=== PATIENT | female | born 1950 ===

== ENCOUNTER 2022-01-30 03:47 | Inpatient (IN) | payer OTHER ==
--- NOTE | 2022-01-30 04:56 | P.HP ---
Certification for Inpatient Patient admitted to: Inpatient With expected LOS: <2 Midnights Patient will require the following post-hospital care: None Practitioner: I am a practitioner with admitting privileges, knowledge of patient current condition, hospital course, and medical plan of care. Services: Services provided to patient in accordance with Admission requirements found in Title 42 Section 412.3 of the Code of Federal Regulations <HakanNoni - Last Filed: 01/30/22 05:21> Patient History Date of Service: 01/30/22 Primary Care Provider: Diego Frey Reason for admission: NSTEMI History of Present Illness: Patient is a 71-year-old female with past medical history of A. fib on Eliquis, CAD, hypertension, pulmonary fibrosis who was admitted here as a transfer from [facility] for NSTEMI. Patient initially presented for heat exhaustion as she was outside for a few days with decreased p.o. intake. Her labs at [facility] were significant for sodium 132, potassium 3.1, BUN 22, troponin high-sensitivity 352, WBC 19. She was febrile, tachycardic, and tachypneic. EKG showed NSR with borderline LAD. Chest x-ray showed pulmonary fibrosis and superimposed alveolar opacities in left lower lobe that may represent of pneumonitis or pneumonia. Upon arrival here, repeat labs are ordered. Patient denies chest pain, just feeling generally weak. She is admitted for further evaluation and treatment with cardiology consulting (sees Ran[facility] outpatient). Home medications list reviewed: Yes - Past Medical/Surgical History Diabetic: No -: CAD -: HTN -: Atrial Fibrillation -: Pulmonary Fibrosis -: Suprapubic Sling -: Hysterectomy -: Amy-En-Y Psychosocial/ Personal History: Patient is retired and lives at home with her . - Social History Smoking Status: Former smoker Alcohol use: No CD- Drugs: No Caffeine use: Yes Place of Residence: Home <Noni Mcclendon - Last Filed: 01/30/22 05:21> Date of Service: 01/30/22 <Otilia Barton - Last Filed: 01/30/22 16:21> Allergies No Known Allergies Allergy (Verified 01/30/22 05:05) Review of Systems General: Fever, Chills, Weakness Respiratory: Cough <Noni Mcclendon - Last Filed: 01/30/22 05:21> Physical Examination - Physical Exam General: Alert, In no apparent distress, Oriented x3 HEENT: Atraumatic, PERRLA, EOMI, Sclerae nonicteric Neck: Supple, 2+ carotid pulse no bruit, No LAD, Without JVD or thyroid abnormality Respiratory: Diminished, Expiratory wheezes Cardiovascular: No edema, Regular rate/rhythm, Normal S1 S2 Gastrointestinal: Normal bowel sounds, No tenderness Musculoskeletal: No tenderness Integumentary: No rashes Neurological: Normal speech, Normal strength at 5/5 x4 extr, Normal tone, Normal affect <HakanNoni - Last Filed: 01/30/22 05:21> - Studies Laboratory Data (last 24 hrs) 01/30/22 14:22: Potassium 3.3 L 01/30/22 06:09: WBC 16.3 H, Hgb 10.9 L, Hct 33.5 L, Plt Count 186 01/30/22 06:09: Sodium 133 L, Potassium 3.0 L, BUN 18, Creatinine 0.97, Glucose 111 H, Magnesium 1.7 L, Total Bilirubin 0.7, AST 47 H, ALT 89 H, Alkaline Phosphatase 100, Triglycerides 127, Cholesterol 144, HDL Cholesterol 48, Cholesterol/HDL Ratio 3.00 <Otilia Barton - Last Filed: 01/30/22 16:21> Assessment and Plan - Problems (Diagnosis) (1) NSTEMI (non-ST elevated myocardial infarction) Current Visit: Yes Status: Acute (2) Leukocytosis Current Visit: Yes Status: Acute Qualifiers: Leukocytosis type: unspecified Qualified Code(s): D72.829 - Elevated white blood cell count, unspecified (3) Hypokalemia Current Visit: Yes Status: Acute (4) Dehydration Current Visit: Yes Status: Acute (5) Afib Current Visit: Yes Status: Chronic Qualifiers: Atrial fibrillation type: unspecified Qualified Code(s): I48.91 - Unspecified atrial fibrillation (6) Pulmonary fibrosis Current Visit: Yes Status: Chronic (7) CAD (coronary artery disease) Current Visit: Yes Status: Chronic Qualifiers: Coronary Disease-Associated Artery/Lesion type: [place] artery [place] vs. transplanted heart: [place] heart Associated angina: without angina Qualified Code(s): I25.10 - Atherosclerotic heart disease of [place] coronary artery without angina pectoris (8) Hypertension Current Visit: Yes Status: Chronic Qualifiers: Hypertension type: primary hypertension Qualified Code(s): I10 - Essential (primary) hypertension - Plan -Cardiology consulted. Repeat cardiac enzymes pending. NPO. -Aspirin ordered. Patient reports taking her eliquis routinely. -Leukocytosis could be secondary to pnuemonia. Antibiotics ordered. Blood cultures drawn. Lactate and procal pending. -Tylenol PRN fever -Cont IV fluids for dehydration -Replete electrolytes per protocol -Obtain and continue home medications -DVT ppx -Full code Discharge Plan: Home Plan to discharge in: 48 Hours - Advance Directives Does patient have a Living Will: No Does patient have a Durable POA for Healthcare: No - Code Status/Comfort Care Code Status Assessed: Yes (Full) Critical Care: No Time Spent Managing Pts Care (In Minutes): 50 <Noni Mcclendon - Last Filed: 01/30/22 05:21> Date of Service: 01/30/22 Subjective: HPI as mentioned above Physical Examination: Vitals: Afebrile vital signs are stable Physical exam: Cardiovascular: Within normal limits. Lungs: Within normal limits Abdomen: Within normal limits Neuro: Awake, alert, oriented to person place and time Assessment: 1. Pulmonary fibrosis with secondary pneumonia 2. Non-STEMI Plan: 1. Continue with IV antibiotics 2. Awaiting sputum and blood culture 3. Repeat chest x-ray 4. CT scan of the chest if pneumonia is not improving- 5. Appreciate pulmonary consultation 6. Continue with nebs as needed 7. O2 per protocol 8. Continue with gentle hydration 9. Repeat labs including CBC and renal function in a.m. 10. GI and DVT prophylaxis <Otilia Barton - Last Filed: 01/30/22 16:21>
[2022-01-30] MEDS ORDERED: MORPHINE 2 MG/ML SYR IV PRN (05:05)
[2022-01-30] MEDS ORDERED: ONDANSETRON 4 MG/2 ML VIAL IV PRN (05:05)
[2022-01-30] MEDS ORDERED: HYDRALAZINE HCL 20 MG/ML VIAL IV PRN (05:05)
[2022-01-30] MEDS: ACETAMINOPHEN 500 MG TAB PO PRN ×3 (05:22→15:55)
[2022-01-30] MEDS ORDERED: ASPIRIN EC 81 MG TAB PO ONE (05:27)
[2022-01-30] MEDS: NA CHLORIDE 0.9% 1,000 ML IV SCH ×3 (05:41→23:20)
[2022-01-30 06:00] VITALS: BMI 22.8
[2022-01-30 06:39] LABS: Absolute Lymphocytes (CBC) 0.6 K/uL (0.7-4.9); Hematocrit 33.5 % (36.0-45.0); Lymphocytes % 3.9 % (15.3-44.8); MCV 82.4 fL (80-100); RBC Red Blood Cell Count 4.07 M/uL (3.86-4.86)
[2022-01-30 06:49] LABS: ALT/SGPT 89 U/L (12-78); AST/SGOT 47 U/L (15-37); Albumin 2.3 g/dL (3.4-5.0); Alkaline Phosphatase 100 U/L (45-117); BUN Blood Urea Nitrogen 18 mg/dL (7-18); Bicarbonate 29 mmol/L (21-32); Bilirubin Total 0.7 mg/dL (0.2-1.0); Creatine Phosphokinase 104 U/L (26-192); Glomerular Filtration Rate 62 ml/min (=/>90); Glucose Level 111 mg/dL (74-106); HDL Cholesterol 48 mg/dL (40-60); LDL Cholesterol, Calculated 71 mg/dL (<130); Magnesium 1.7 mg/dL (1.8-2.4); NT PRO-BNP 3170 pg/mL (<125); Sodium Level 133 mmol/L (136-145); Thyroid Stimulating Hormone 0.948 uIU/mL (0.360-3.740)
[2022-01-30 06:50] LABS: CKMB Creatine Kinase MB < 1.0 ng/mL (1.0-3.6)
[2022-01-30 06:51] LABS: Troponin High Sensitivity 290.3 pg/mL (<58.9)
[2022-01-30] MEDS ORDERED: POTASSIUM CL SA 10 MEQ TAB PO ONE ×2 (07:36→15:13)
[2022-01-30] MEDS ORDERED: MAGNESIUM SULFATE 1 gm IVPB 1 GM/100 ML BAG IV ONE (07:37)
[2022-01-30 08:38] LABS: Anisocytosis 2+; Blood Morphology Comment NOTED (NOT SEEN); Hypochromasia 1+; Platelet Estimate ADEQ; Poikilocytosis SLIGHT; White Blood Cell Scan OK (OK)
[2022-01-30] MEDS: APIXABAN 5 MG TABLET PO SCH ×3 (08:41→20:31)
[2022-01-30] MEDS ORDERED: ASPIRIN EC 81 MG TAB PO SCH (09:00)
[2022-01-30] MEDS ORDERED: CEFTRIAXONE 1,000 MG in NA CHLORIDE 0.9% 50 ML IVPB SCH (09:00)
[2022-01-30] MEDS ORDERED: APIXABAN 5 MG TABLET PO SCH (09:00)
--- NOTE | 2022-01-30 14:07 | CON ---
Date of Consultation: 01/30/2022 Reason For Consultation: Elevated troponin. History Of Present Illness: Ms. Walker is a 71-year-old white woman. She has a history of severe pu lmonary fibrosis, hypertension, and paroxysmal atrial fibrillation. She sees Dr. Pollack in the offic e. They were camping for about a week and she came to the emergency room and with heat ex haustion fever, chills, diarrhea; was found to have an elevated troponin, elevated liver function yariel ts, hypokalemia, elevated white count, elevated procalcitonin, elevated BNP of 3170. We decided to t ransfer her to [place] for further evaluation and care. The patient never had any chest pain. Past Medical History: As stated above. Allergies: NONE. Review of Systems: Negative. Social History: Negative. Family History: Negative. Medications: At home include inhalers, Eliquis, Lasix, and Protonix. She also takes Ofev for pulmon elen fibrosis. Physical Examination: General: Mrs. Walker was not having any chest pain, but she was coughing pretty much continuously. Vital Signs: Otherwise stable. She was in sinus rhythm. HEENT: Negative. Neck: Supple with no bruit, lymphadenopathy, JVD, or thyromegaly. Chest: Despite her coughing showed no wheezing. No rales. It was clear to auscultation and percuss ion. Cardiac exam: Revealed a regular rhythm and rate. No murmurs, gallops, or rubs. Abdomen: Benign. Extremities: Revealed no clubbing, cyanosis, or edema. Diagnostic Data: As stated earlier, EKG is nonspecific. Chest x-ray is negative. Impression And Plan: 1.Elevated troponin secondary to demand ischemia from heat exhaustion, diarrhea, fever, and chills. 2.Hypokalemia, need to be supplemented. 3.Elevated fungus level secondary to heat exhaustion. 4.Elevated white count and procalcitonin consistent with infection. She is on antibiotics. Her other problems include paroxysmal atrial fibrillation, on Eliquis, which we will need to continue . Pulmonary fibrosis, she takes Ofed inhaler, which we will need to continue. Her blood pressure is well controlled on her present regimen. She does state that Lasix at home will need to continue. M rs. Aaron does not have an acute coronary syndrome. No plan for heart catheterization. She had a n egative stress test about a year ago. Echocardiogram is pending for tomorrow and we will see her in the office in the next week or two. DAMIR Voice ID: [id number] Report ID: [id number]
[2022-01-30] MEDS ORDERED: METHYLPREDNISOLONE 125 MG INJ IV ONE (15:52)
[2022-01-30] MEDS ORDERED: HOME MED 1 EA UNK (Albuterol Sulfate [Proair Respiclick] 90 MCG Aer.Pow.Ba) IH PRN (16:02)
[2022-01-30] MEDS ORDERED: ALBUTEROL 2.5 MG/3 ML NEB SOL NEB PRN (16:05)
[2022-01-30] MEDS: Levofloxacin 750mg IV 750 MG/150 ML BAG IV SCH (16:43)
[2022-01-30 16:47] LABS: Urine Appearance Clear (Clear); Urine Bilirubin Negative (Negative); Urine Blood 2+ (Negative); Urine Color Yellow (Yellow); Urine Glucose Negative (Negative); Urine Protein 1+ (Negative); Urine pH 5.5 (5.0-7.0)
[2022-01-30 16:55] LABS: Urine Bacteria <20 /HPF (<20)
--- NOTE | 2022-01-30 17:11 | RAD REPORT ---
EXAM DESCRIPTION: CT - Thorax Wo Con - 01/30/2022 5:00 pm CLINICAL HISTORY: Pneumonia COMPARISON: No comparisons FINDINGS: Chest Wall: No suspicious thyroid nodules or pathologic lymphadenopathy. Lungs: Bilateral honeycombing in apical basilar gradient with traction bronchiectasis. There are scat tered areas of interstitial thickening which may or may not be chronic. No evidence of a consolidativ e pneumonia. No discrete lung mass. Pleura: Trace left pleural effusion. Mediastinum/han: No pathologic lymphadenopathy. Patulous esophagus with fluid. Pulmonary arteries/Aorta: Limited evaluation without contrast. No aortic aneurysm. Ectasia of the asc ending thoracic aorta. Heart: No significant pericardial effusion. Normal heart size. Mild coronary artery calcifications. Upper abdomen: Partially imaged surgical changes at the gastroesophageal junction. Bones: No acute abnormality. All CT scans are performed using dose optimization technique as appropriate and may include automated exposure control or mA/KV adjustment according to patient size. IMPRESSION: Pulmonary fibrosis in a usual interstitial pneumonia (IUP) pattern. Without priors, an e xacerbation difficult to exclude. No convincing findings to suggest a pneumonia, however.
[2022-01-30] MEDS: METHYLPREDNISOLONE 125 MG INJ IV SCH ×2 (17:14→23:59)
[2022-01-30] MEDS: PIPER TAZO 3.375 GM in NA CHLORIDE 0.9% 100 ML IV SCH ×2 (17:53→23:59)
[2022-01-30] MEDS: IPRATROPIUM BROM 0.5MG/2.5ML NEB SCH (19:52)
[2022-01-30] MEDS: ARFORMOTEROL TARTRATE 15 MCG/2 ML VIAL.NEB NEB SCH (19:52)
[2022-01-30] MEDS: NINTEDANIB ESYLATE 150 MG PO SCH (20:10)
[2022-01-30] MEDS: DULERA 100/5 (MOMETASONE/FORMOTEROL) INHALER IH SCH (20:30)
[2022-01-30] MEDS: ATORVASTATIN 40 MG TAB PO SCH (20:31)
[2022-01-31] MEDS: ACETAMINOPHEN 500 MG TAB PO PRN ×4 (00:05→22:47)
[2022-01-31 04:32] LABS: Absolute Lymphocytes (CBC) 0.4 K/uL (0.7-4.9); Hematocrit 31.8 % (36.0-45.0); Lymphocytes % 4.5 % (15.3-44.8); MCV 82.7 fL (80-100); MPV 8.2 fL (7.6-11.3); RBC Red Blood Cell Count 3.84 M/uL (3.86-4.86)
[2022-01-31 04:51] LABS: Albumin 1.9 g/dL (3.4-5.0); Bilirubin Total 0.4 mg/dL (0.2-1.0); Magnesium 2.2 mg/dL (1.8-2.4); Potassium 3.5 mmol/L (3.5-5.1); Protein, Total 5.8 g/dL (6.4-8.2)
[2022-01-31] MEDS ORDERED: POTASSIUM CL SA 10 MEQ TAB PO ONE (04:56)
[2022-01-31] MEDS: METHYLPREDNISOLONE 125 MG INJ IV SCH (05:07)
[2022-01-31] MEDS: IPRATROPIUM BROM 0.5MG/2.5ML NEB SCH ×2 (08:00→20:31)
[2022-01-31] MEDS: ARFORMOTEROL TARTRATE 15 MCG/2 ML VIAL.NEB NEB SCH ×2 (08:00→20:31)
--- NOTE | 2022-01-31 08:21 | P.CNS ---
Date of Consult: 01/31/22 Reason for Consult: Pulmonary fibrosis Primary Care Provider: Diego Frey Chief Complaint: Bacteremia possible non-STEMI and pulmonary fibrosis History of Present Illness: Patient is 71 years of age admitted with worsening dyspnea some fever and chills she has a history of pulmonary fibrosis possible non-STEMI she is feeling better now CT scan shows pulmonary fibrosis denies any cough or chest pain fever or chills Allergies No Known Allergies Allergy (Verified 01/30/22 05:05) Home Medications: Albuterol Sulfate [Proair Respiclick] 1 puff IH Q4HP PRN 01/30/22 Apixaban [Eliquis] 5 mg PO BID 01/30/22 Budesonide/Formoterol Fumarate [Budesonide-Formoterol 160-4.5] 10.2 gm IH BID 01/30/22 Celecoxib 200 mg PO BID 01/30/22 Furosemide 20 mg PO DAILY 01/30/22 Nintedanib Esylate [Ofev] 150 mg PO BID 01/30/22 Pantoprazole [Protonix Tab] 40 mg PO DAILY 01/30/22 - Past Medical/Surgical History Diabetic: No -: CAD -: HTN -: Atrial Fibrillation -: Pulmonary Fibrosis -: Suprapubic Sling -: Hysterectomy -: Amy-En-Y Psychosocial/ Personal History: Patient is retired and lives at home with her . - Social History Alcohol use: No CD- Drugs: No Caffeine use: Yes Place of Residence: Home Review of Systems 10-point ROS is otherwise unremarkable Physical Examination Temp Pulse Resp BP Pulse Ox 97 F 60 16 111/52 L 95 01/31/22 07:56 01/31/22 07:56 01/31/22 07:56 01/31/22 07:56 01/31/22 07:56 General: Alert, In no apparent distress Respiratory: Crackles/rales Cardiovascular: No edema, Regular rate/rhythm, Normal S1 S2 Laboratory Data (last 24 hrs) 01/31/22 04:01: Sodium 137, Potassium 3.5, BUN 17, Creatinine 0.90, Glucose 145 H, Magnesium 2.2 D, Total Bilirubin 0.4, AST 26, ALT 65, Alkaline Phosphatase 82 01/31/22 04:01: WBC 9.1 D, Hgb 10.3 L, Hct 31.8 L, Plt Count 171 01/30/22 21:32: Potassium 3.7 01/30/22 14:22: Potassium 3.3 L 01/30/22 06:09: WBC 16.3 H, Hgb 10.9 L, Hct 33.5 L, Plt Count 186 - Problems (1) Pulmonary fibrosis Current Visit: Yes Status: Chronic Plan: Patient is 71 years of age with a history of pulmonary fibrosis admitted with possible pneumonia CT scan shows pulmonary fibrosis t patient's condition is stable compliant with Ofev patient is anticoagulated with Eliquis at home due to A. fib (2) Positive blood culture Current Visit: Yes Status: Acute Plan: Patient has positive blood cultures gram-negative rods possible Pseudomonas patient is on dual therapy with levofloxacin and Zosyn ID pending count is now normal patient is feeling better vital signs oxygenation stable DC steroids el evated troponin most likely demand ischemia
[2022-01-31] MEDS: PIPER TAZO 3.375 GM in NA CHLORIDE 0.9% 100 ML IV SCH (08:27)
[2022-01-31] MEDS: APIXABAN 5 MG TABLET PO SCH ×2 (08:27→20:52)
[2022-01-31] MEDS: ASPIRIN EC 81 MG TAB PO SCH (08:27)
[2022-01-31] MEDS: NINTEDANIB ESYLATE 150 MG PO SCH ×2 (08:29→20:53)
[2022-01-31] MEDS: DULERA 100/5 (MOMETASONE/FORMOTEROL) INHALER IH SCH ×2 (08:29→20:53)
[2022-01-31] MEDS: PANTOPRAZOLE 40MG TABLET PO SCH (08:30)
[2022-01-31] MEDS: NA CHLORIDE 0.9% 1,000 ML IV SCH ×2 (08:31→22:41)
[2022-01-31] MEDS ORDERED: FUROSEMIDE 20 MG TABLET PO SCH (09:00)
--- NOTE | 2022-01-31 13:35 | P.PN ---
Subjective Date of Service: 01/31/22 Primary Care Provider: Diego Frey Chief Complaint: Bacteremia possible non-STEMI and pulmonary fibrosis Subjective: No new changes, Tolerating diet, Improving Physical Examination - Vital Signs Temperature: 97.2 F Blood Pressure: 110/56 Pulse: 53 Respirations: 18 Pulse Ox (%): 96 - Studies Laboratory Data (last 24 hrs) 01/31/22 04:01: Sodium 137, Potassium 3.5, BUN 17, Creatinine 0.90, Glucose 145 H, Magnesium 2.2 D, Total Bilirubin 0.4, AST 26, ALT 65, Alkaline Phosphatase 82 01/31/22 04:01: WBC 9.1 D, Hgb 10.3 L, Hct 31.8 L, Plt Count 171 01/30/22 21:32: Potassium 3.7 01/30/22 14:22: Potassium 3.3 L Microbiology Data (last 24 hrs): 01/30/22 06:13 Blood - Blood Blood Culture Gram Stain - Final 01/30/22 06:13 Blood - Blood Gram Stain - Final 01/30/22 06:09 Blood - Blood Blood Culture Gram Stain - Final 01/30/22 06:09 Blood - Blood Gram Stain - Final Assessment And Plan Physician Review: Patient Assessed, Agree with Above Assessment and Plan Physician Review Additional Text: - Physical Exam General: Alert, In no apparent distress, Oriented x3 HEENT: Atraumatic, PERRLA, EOMI, Sclerae nonicteric Neck: Supple, 2+ carotid pulse no bruit, No LAD, Without JVD or thyroid abnormality Respiratory: Diminished, Expiratory wheezes Cardiovascular: No edema, Regular rate/rhythm, Normal S1 S2 Gastrointestinal: Normal bowel sounds, No tenderness Musculoskeletal: No tenderness Integumentary: No rashes Neurological: Normal speech, Normal strength at 5/5 x4 extr, Normal tone, Normal affect Laboratory Data (last 24 hrs) Blood culture x2 - Problems (Diagnosis) (1) NSTEMI (non-ST elevated myocardial infarction) Current Visit: Yes Status: Acute (2) Leukocytosis Current Visit: Yes Status: Acute Qualifiers: Leukocytosis type: unspecified Qualified Code(s): D72.829 - Elevated white blood cell count, unspecified (3) Hypokalemia Current Visit: Yes Status: Acute (4) Dehydration Current Visit: Yes Status: Acute (5) Afib Current Visit: Yes Status: Chronic Qualifiers: Atrial fibrillation type: unspecified Qualified Code(s): I48.91 - Unspecified atrial fibrillation (6) Pulmonary fibrosis Current Visit: Yes Status: Chronic (7) CAD (coronary artery disease) Current Visit: Yes Status: Chronic Qualifiers: Coronary Disease-Associated Artery/Lesion type: [place] artery [place] vs. transplanted heart: [place] heart Associated angina: without angina Qualified Code(s): I25.10 - Atherosclerotic heart disease of [place] coronary artery without angina pectoris (8) Hypertension Current Visit: Yes Status: Chronic Qualifiers: Hypertension type: primary hypertension Qualified Code(s): I10 - Essential (primary) hypertension Plan -Likely due to demand mediated ischemia, troponin trending down Continue empirical antibiotics -Blood culture with gram-negative rods, likely due to UTI with bacteremia -Continue aspirin and eliquis -Leukocytosis could be secondary to pnuemonia. -Pulmonary fibrosis stable -Will need nebulizer prescription at discharge -Obtain and continue home medications -DVT ppx -Full code Time Spent Managing PTS Care (In Minutes): 35
[2022-01-31] MEDS: Levofloxacin 750mg IV 750 MG/150 ML BAG IV SCH (15:42)
[2022-01-31] MEDS ORDERED: CALCIUM CARBONATE CHEW 500MG TAB PO ONE (20:05)
--- NOTE | 2022-01-31 20:13 | PN ---
The patient was admitted with pulmonary fibrosis exacerbation, coronary artery disease, atrial fibril lation, hypertension, heat exhaustion, mildly elevated troponin. Echocardiogram today did not show a ny significant wall motion abnormalities. Mrs. Walker does take Ofev for her pulmonary fibrosis. Sh hira has been seen by Dr. Pretty from a cardiac standpoint. The patient is already on Eliquis as far as her atrial fibrillation is concerned. I think her troponin was secondary to demand ischemia from heat exhaustion, diarrhea, fever and chills and maybe hypokalemia. The patient remains on antibiotic s. Had a negative stress test about a year ago. No further cardiac recommendations at this point. KAYLEY/TR Voice ID: [id number] Report ID: [id number]
[2022-01-31] MEDS: ATORVASTATIN 40 MG TAB PO SCH (20:52)
[2022-02-01 06:33] LABS: Potassium 3.7 mmol/L (3.5-5.1)
[2022-02-01] MEDS ORDERED: ARFORMOTEROL TARTRATE 15 MCG/2 ML VIAL.NEB ONE (08:07)
[2022-02-01] MEDS: PANTOPRAZOLE 40MG TABLET PO SCH (08:12)
[2022-02-01] MEDS: ASPIRIN EC 81 MG TAB PO SCH (08:12)
[2022-02-01] MEDS: APIXABAN 5 MG TABLET PO SCH ×2 (08:12→20:32)
[2022-02-01] MEDS: DULERA 100/5 (MOMETASONE/FORMOTEROL) INHALER IH SCH ×2 (08:12→20:32)
[2022-02-01] MEDS: NINTEDANIB ESYLATE 150 MG PO SCH ×2 (08:13→20:33)
[2022-02-01] MEDS: NA CHLORIDE 0.9% 1,000 ML IV SCH (08:13)
[2022-02-01] MEDS: IPRATROPIUM BROM 0.5MG/2.5ML NEB SCH ×2 (08:27→20:00)
[2022-02-01] MEDS: ARFORMOTEROL TARTRATE 15 MCG/2 ML VIAL.NEB NEB SCH ×2 (08:27→20:00)
--- NOTE | 2022-02-01 08:36 | ECHO ---
HEIGHT: 5 ft 6 in WEIGHT: 142 lb 0 oz DATE OF STUDY: 01/31/[address]: Say Chapa MD 2-DIMENSIONAL: YES M.MODE: YES DOPPLER: YES COLOR FLOW: YES TDS: PORTABLE: DEFINITY: BUBBLE STUDY: DIAGNOSIS: CHEST PAIN CARDIAC HISTORY: CATHERIZATION: SURGERY: PROSTHETIC VALVE: PACEMAKER: MEASUREMENTS (cm) DIASTOLIC (NORMALS) SYSTOLIC (NORMALS) IVSd 1.0 (0.6-1.2) LA Diam 3.6 (1.9-4.0) LVEF 62% LVIDd 4.6 (3.5-5.7) LVIDs 3.1 (2.0-3.5) %FS 33% LVPWd 1.0 (0.6-1.2) Ao Diam 3.3 (2.0-3.7) 2 DIMENSIONAL ASSESSMENT: RIGHT ATRIUM: NORMAL LEFT ATRIUM: NORMAL RIGHT VENTRICLE: NORMAL LEFT VENTRICLE: NORMAL TRICUSPID VALVE: NORMAL MITRAL VALVE: NORMAL PULMONIC VALVE: NORMAL AORTIC VALVE: THICKENED WITH MILD AOTIC INSUFFICIECNY PERICARDIAL EFFUSION: NONE AORTIC ROOT: NORMAL LEFT VENTRICULAR WALL MOTION: NORMAL DOPPLER/COLOR FLOW: MILD TRICUSPID REGURGITATION. MILD AORTIC INSUFFICIENCY. MILD MITRAL REGURGITATION. COMMENTS: NORMAL LEFT VENTRICULAR EJECTION FRACTION 60-65%. NORMAL WALL MOTION. MILD TRICUSPID REGURGITATION. MILD MITRAL REGURGITATION. MILD AORTIC INSUFFICIENCY. TECHNOLOGIST: ALEXANDRA AVILA
[2022-02-01] MEDS ORDERED: POTASSIUM CL SA 10 MEQ TAB PO ONE (09:00)
--- NOTE | 2022-02-01 13:04 | P.PN ---
Subjective Date of Service: 02/01/22 Primary Care Provider: Diego Frey Chief Complaint: Bacteremia possible non-STEMI and pulmonary fibrosis Subjective: No new changes, Tolerating diet, Ambulating Physical Examination - Vital Signs Temperature: 98.5 F Blood Pressure: 139/62 Pulse: 56 Respirations: 13 Pulse Ox (%): 97 - Studies Laboratory Data (last 24 hrs) 02/01/22 06:03: Sodium 139, Potassium 3.7, BUN 20 H, Creatinine 1.04, Glucose 117 H Microbiology Data (last 24 hrs): 01/30/22 06:13 Blood - Blood Aerobic Blood Culture - Final Escherichia Coli 01/30/22 06:13 Blood - Blood Blood Culture Gram Stain - Final 01/30/22 06:13 Blood - Blood Anaerobic Blood Culture - Final Escherichia Coli 01/30/22 06:13 Blood - Blood Gram Stain - Final 01/30/22 06:09 Blood - Blood Aerobic Blood Culture - Final Escherichia Coli 01/30/22 06:09 Blood - Blood Blood Culture Gram Stain - Final 01/30/22 06:09 Blood - Blood Anaerobic Blood Culture - Final Escherichia Coli 01/30/22 06:09 Blood - Blood Gram Stain - Final Assessment And Plan Physician Review: Patient Assessed, Agree with Above Assessment and Plan Physician Review Additional Text: : Echocardiogram MILD TRICUSPID REGURGITATION. MILD AORTIC INSUFFICIENCY. MILD MITRAL REGURGITATION. COMMENTS: NORMAL LEFT VENTRICULAR EJECTION FRACTION 60-65%. NORMAL WALL MO TION. MILD TRICUSPID REGURGITATION. MILD MITRAL REGURGITATION. MILD AORTIC INSUFFICIENCY. - Physical Exam General: Alert, In no apparent distress, Oriented x3 HEENT: Atraumatic, PERRLA, EOMI, Sclerae nonicteric Neck: Supple, 2+ carotid pulse no bruit, No LAD, Without JVD or thyroid abnormality Respiratory: resolved expiratory wheeze, good air entry now Cardiovascular: No edema, Regular rate/rhythm, Normal S1 S2 Gastrointestinal: Normal bowel sounds, No tenderness Musculoskeletal: No tenderness Integumentary: No rashes Neurological: Normal speech, Normal strength at 5/5 x4 extr, Normal tone, Normal affect Laboratory Data (last 24 hrs) Blood culture x2 - Problems (Diagnosis) (1) NSTEMI (non-ST elevated myocardial infarction) Current Visit: Yes Status: Acute (2) Leukocytosis Current Visit: Yes Status: Acute Qualifiers: Leukocytosis type: unspecified Qualified Code(s): D72.829 - Elevated white blood cell count, unspecified (3) Hypokalemia Current Visit: Yes Status: Acute (4) Dehydration Current Visit: Yes Status: Acute (5) Afib Current Visit: Yes Status: Chronic Qualifiers: Atrial fibrillation type: unspecified Qualified Code(s): I48.91 - Unspecified atrial fibrillation (6) Pulmonary fibrosis Current Visit: Yes Status: Chronic (7) CAD (coronary artery disease) Current Visit: Yes Status: Chronic Qualifiers: Coronary Disease-Associated Artery/Lesion type: [place] artery [place] vs. transplanted heart: [place] heart Associated angina: without angina Qualified Code(s): I25.10 - Atherosclerotic heart disease of [place] coronary artery w ithout angina pectoris (8) Hypertension Current Visit: Yes Status: Chronic Qualifiers: Hypertension type: primary hypertension Qualified Code(s): I10 - Essential (primary) hypertension Plan -Likely due to demand mediated ischemia, troponin trending down Continue empirical antibiotics -Blood culture with E coli bacteremia but neg urine cx -Antibiotics switched to Levaquin, Echocardiogram shows normal EF with normal valves Follow repeat blood culture today -Continue aspirin and eliquis -Leukocytosis could be secondary to bacteremiaimproving -Pulmonary fibrosis stable -Will need nebulizer prescription at discharge -DVT ppx -Full code Dispositionplan for DC home if repeat blood culture negative for 48 hours
[2022-02-01] MEDS: ACETAMINOPHEN 500 MG TAB PO PRN (16:53)
[2022-02-01] MEDS: Levofloxacin 750mg IV 750 MG/150 ML BAG IV SCH (16:54)
[2022-02-01] MEDS ORDERED: CALCIUM CARBONATE CHEW 500MG TAB PO ONE (19:43)
[2022-02-01] MEDS: ATORVASTATIN 40 MG TAB PO SCH (20:32)
[2022-02-02 06:03] LABS: Absolute Lymphocytes (CBC) 1.1 K/uL (0.7-4.9); Hematocrit 30.7 % (36.0-45.0); Lymphocytes % 9.6 % (15.3-44.8); MCV 82.9 fL (80-100); RBC Red Blood Cell Count 3.71 M/uL (3.86-4.86)
[2022-02-02 06:17] LABS: Magnesium 1.5 mg/dL (1.8-2.4); Potassium 3.6 mmol/L (3.5-5.1)
[2022-02-02 06:54] LABS: Blood Morphology Comment NOTED (NOT SEEN); White Blood Cell Scan OK (OK)
[2022-02-02 06:55] LABS: Anisocytosis 2+; Platelet Estimate ADEQ
[2022-02-02] MEDS: MAGNESIUM SULFATE 1 gm IVPB 1 GM/100 ML BAG IV SCH ×2 (08:00→08:20)
[2022-02-02] MEDS: ARFORMOTEROL TARTRATE 15 MCG/2 ML VIAL.NEB NEB SCH (08:10)
[2022-02-02] MEDS: IPRATROPIUM BROM 0.5MG/2.5ML NEB SCH (08:10)
[2022-02-02] MEDS: ACETAMINOPHEN 500 MG TAB PO PRN ×2 (08:19→15:53)
[2022-02-02] MEDS: PANTOPRAZOLE 40MG TABLET PO SCH (08:19)
[2022-02-02] MEDS: ASPIRIN EC 81 MG TAB PO SCH (08:19)
[2022-02-02] MEDS: APIXABAN 5 MG TABLET PO SCH (08:20)
[2022-02-02] MEDS: DULERA 100/5 (MOMETASONE/FORMOTEROL) INHALER IH SCH (08:20)
[2022-02-02] MEDS: NINTEDANIB ESYLATE 150 MG PO SCH (08:21)
[2022-02-02] MEDS ORDERED: Magnesium Sulfate 2gm IVPB 2 G/50 ML BAG IV ONE (08:45)
[2022-02-02] MEDS ORDERED: FUROSEMIDE 20 MG TABLET PO SCH (09:00)
[2022-02-02] MEDS ORDERED: POTASSIUM CL SA 10 MEQ TAB PO ONE (09:00)
[2022-02-02] MEDS ORDERED: MAGNESIUM 50% 3 GM in NA CHLORIDE 0.9% 100 ML IV ONE (09:00)
[2022-02-02 12:18] VITALS: TEMP 97.6
[2022-02-02 12:58] LABS: Urine Appearance Clear (Clear); Urine Bilirubin Negative (Negative); Urine Blood Trace-intact (Negative); Urine Color Yellow (Yellow); Urine Glucose Negative (Negative); Urine Protein Negative (Negative); Urine Specific Gravity <=1.005 (1.005-1.030); Urine Urobilinogen 0.2 mg/dL (0.2-1.0)
--- NOTE | 2022-02-02 13:09 | P.DS ---
Admission Date: 01/30/22 Discharge Date: 02/02/22 Primary Care Provider: Diego Frey Disposition: ROUTINE DISCHARGE Discharge Condition: FAIR Reason for Admission: Bacteremia possible non-STEMI and pulmonary fibrosis Brief History of Present Illness: History of Present Illness: Patient is a 71-year-old female with past medical history of A. fib on Eliquis, CAD, hypertension, pulmonary fibrosis who was admitted here as a transfer from [place] for NSTEMI. Patient initially presented for heat exhaustion as she was outside for a few days with decreased p.o. intake. Her labs at [facility] were significant for sodium 132, potassium 3.1, BUN 22, troponin high-sensitivity 352, WBC 19. She was febrile, tachycardic, and tachypneic. EKG showed NSR with borderline LAD. Chest x-ray showed pulmonary fibrosis and superimposed alveolar opacities in left lower lobe that may represent of pneumonitis or pneumonia. Upon arrival here, repeat labs are ordered. Patient denies chest pain, just feeling generally weak. She is admitted for further evaluation and treatment with cardiology consulting (tracys [facility] outpatient). Home medications list reviewed: Yes - Past Medical/Surgical History Diabetic: No -: CAD -: HTN -: Atrial Fibrillation -: Pulmonary Fibrosis -: Suprapubic Sling -: Hysterectomy -: Amy-En-Y Hospital Course: Hospital course Patient was admitted for fever with chills as well as elevated troponin. She also had some mild urinary tract symptoms. Urinalysis was suggestive of UTI she was started on empirical antibiotics on presentation. Blood culture obtained at the time grew E. coli. Urine culture obtained 8 hours later did not show yield any growth. She had an echocardiogram done with findings of normal EF and no significant valvular abnormality. Her procalcitonin as well as white cell count significantly improved. Her troponin also quickly trended down. It was felt her troponin elevation was demand mediated ischemia from bacteremia. She was evaluated by pulmonary for pulmonary fibrosis. Bronchodilators was initiated. Patient tolerated treatment well and within 48 hours of was anxious to go home. Repeat blood culture was obtained and since significant improved clinically and no growth in blood culture over 24 hours. Patient can be discharged home to finish a 14-day course of antibiotics with Levaquin. She was continued on her Eliquis. Aspirin was started for her for secondary prophylaxis. Her home dose of Celebrex was discontinued given risk for GI bleed - Physical Exam General: Alert, In no apparent distress, Oriented x3 HEENT: Atraumatic, PERRLA, EOMI, Sclerae nonicteric Neck: Supple, 2+ carotid pulse no bruit, No LAD, Without JVD or thyroid abnormality Respiratory: Good air entry bilaterally, no crepitation, resolved wheeze Cardiovascular: No edema, Regular rate/rhythm, Normal S1 S2 Gastrointestinal: Normal bowel sounds, No tenderness Musculoskeletal: No tenderness Integumentary: No rashes Neurological: Normal speech, Normal strength at 5/5 x4 extr, Normal tone, Normal affect Vital Signs/Physical Exam: Temp Pulse Resp BP Pulse Ox 97.6 F 67 23 H 124/73 92 02/02/22 12:00 02/02/22 12:00 02/02/22 12:00 02/02/22 12:00 02/02/22 12:00 Laboratory Data at Discharge: WBC 11.6 K/uL (4.3-10.9) H D 02/02/22 05:50 Hgb 9.9 g/dL (12.0-15.0) L 02/02/22 05:50 Hct 30.7 % (36.0-45.0) L 02/02/22 05:50 Plt Count 244 K/uL (152-406) D 02/02/22 05:50 Sodium 139 mmol/L (136-145) 02/02/22 05:50 Potassium 3.6 mmol/L (3.5-5.1) 02/02/22 05:50 BUN 10 mg/dL (7-18) 02/02/22 05:50 Creatinine 0.84 mg/dL (0.55-1.3) 02/02/22 05:50 Glucose 84 mg/dL (74-106) 02/02/22 05:50 Magnesium Cancelled 02/02/22 13:15 Total Bilirubin 0.4 mg/dL (0.2-1.0) 01/31/22 04:01 AST 26 U/L (15-37) 01/31/22 04:01 ALT 65 U/L (12-78) 01/31/22 04:01 Alkaline Phosphatase 82 U/L (45-117) 01/31/22 04:01 Triglycerides 127 mg/dL (<150) 01/30/22 06:09 Cholesterol 144 mg/dL (<200) 01/30/22 06:09 HDL Cholesterol 48 mg/dL (40-60) 01/30/22 06:09 Cholesterol/HDL Ratio 3.00 01/30/22 06:09 Home Medications: Albuterol Sulfate [Proair Respiclick] 1 puff IH Q4HP PRN 01/30/22 Apixaban [Eliquis] 5 mg PO BID 01/30/22 Budesonide/Formoterol Fumarate [Budesonide-Formoterol 160-4.5] 10.2 gm IH BID 01/30/22 Furosemide 20 mg PO DAILY 01/30/22 Nintedanib Esylate [Ofev] 150 mg PO BID 01/30/22 Pantoprazole [Protonix Tab*] 40 mg PO DAILY 01/30/22 Albuterol Neb [Proventil 0.083% Neb Soln] 2.5 mg NEB [id number] PRN #30 amp 02/02/22 Lactobacillus Acidophilus [Acidophilus] 1 each PO DAILY #14 capsule 02/02/22 Levofloxacin [Levaquin] 500 mg PO DAILY #12 tablet 02/02/22 Mometasone/Formoterol [Dulera 100 Mcg/5 Mcg Inhaler] 2 puff IH BID #1 inhaler 02/02/22 New Medications: Lactobacillus Acidophilus [Acidophilus] 1 each PO DAILY #14 capsule Mometasone/Formoterol [Dulera 100 Mcg/5 Mcg Inhaler] 2 puff IH BID #1 inhaler Levofloxacin [Levaquin] 500 mg PO DAILY #12 tablet Albuterol Neb [Proventil 0.083% Neb Soln] 2.5 mg NEB [id number] PRN #30 amp PRN Reason: Shortness Of Breath Diet: Regular Activity: Ad suzanne Followup: Andre Pretty MD [ACTIVE - CAN ADMIT] - Time spent managing pt's care (in minutes): 35
[2022-02-02 13:38] LABS: Urine Bacteria NONE SEEN /HPF (<20); Urine RBC <5 /HPF (NONE SEEN)
[2022-02-02 15:09] VITALS: O2SAT 92
[2022-02-02 16:21] VITALS: BP 113/59
== END 2022-02-02 16:25 | disposition home or self-care (01) | DRG 871 ==
LOC: 2ND 04:44 → EDSEX 04:44
PROVIDERS: ADMIT Hospitalist; ATTEND Hospitalist
DX: A41.51 Sepsis due to Escherichia coli [E. coli] (principal); J18.9 Pneumonia, unspecified organism; N39.0 Urinary tract infection, site not specified; I24.8 Other forms of acute ischemic heart disease; I25.10 Atherosclerotic heart disease of native coronary artery without angina pectoris; I10 Essential (primary) hypertension; J84.10 Pulmonary fibrosis, unspecified; E87.6 Hypokalemia; E86.0 Dehydration; I48.0 Paroxysmal atrial fibrillation; R77.8 Other specified abnormalities of plasma proteins; W92.XXXA Exposure to excessive heat of man-made origin, initial encounter; Y93.89 Activity, other specified; Y92.833 Campsite as the place of occurrence of the external cause; Z79.01 Long term (current) use of anticoagulants; Z87.891 Personal history of nicotine dependence
CPT/HCPCS: 36415; 71250; 80048; 80053; 80061; 81003; 81015; 82550; 82553; 83605; 83735; 83880; 84132; 84145; 84443; 84484; 85025; 87040; 87077; 87086; 87088; 87186; 87205; 93306; J2270; J2543; J2930; J3475; J3535; J7030; J7605